=== PATIENT | female | born 1950 | race Caucasian/White ===

== ENCOUNTER → 2019-03-31 | Day surgery (SDC) | payer MEDICARE, OTHER ==
[2019-03-23 11:15] LABS: BASOPHILS % 0.3 % (0.0-1.0); EOSINOPHILS # (AUTO) 0.1 (0.0-0.4); EOSINOPHILS % 1.6 % (0.0-6.0); HEMATOCRIT 38.2 % (34.2-44.1); LYMPHOCYTES # (AUTO) 1.5 (1.0-3.2); LYMPHOCYTES % 24.2 % (18.0-39.1); MEAN CORPUSCULAR HEMOGLOBIN 30.6 pg (28-32); MEAN CORPUSCULAR HGB CONC 31.4 g/dL (31-35); MEAN CORPUSCULAR VOLUME 97.4 fL (81-99); MONOCYTES # (AUTO) 0.5 (0.2-0.8); MONOCYTES % 7.1 % (4.4-11.3); NEUTROPHILS # (AUTO) 4.2 (2.1-6.9); NEUTROPHILS % 66.5 % (38.7-80.0); PLATELET COUNT 262 x10e3/uL (140-360); RED BLOOD COUNT 3.92 x10e6/uL (3.6-5.1); RED CELL DISTRIBUTION WIDTH 13.8 % (11.7-14.4)
[~2019-03-31] MED LIST: ASPIRIN81 MG PO; B-125000 MCG PO; BENADRYL25 M1 PO; CETIRIZINE HCL10 MG PO; CITALOPRAM HBR20 MG PO; CLOPIDOGREL75 MG PO; CRESTOR10 MG PO; D3 PO; EFFIENT10 MG PO; FAMOTIDINE20 MG PO; FENTANYL CITRATE/PF 100MCG/2 ML INJ ONE; FERROUS SULFAT325 MG PO; HCTZ PO; HYDROCHLOROTHIA25 MG PO; MIDAZOLAM HCL 2 MG/2 ML VIAL ONE; NEXIUM40 MG PO; OMEGA 3 FISH O1 EACH PO; OMEPRAZOLE40 MG PO; POTASSIUM CHLO10 ME1 PO; PROPOFOL IV EMULSION 10 MG/ML 50 ML VIAL ONE; RAMIPRIL10 MG PO; TOPROL XL50 MG PO; VITAMIN C WIT1000 MG PO; WOMEN'S DAILY1 EACH PO; ZINC50 MG PO; [UNRECOGNIZED DRUG - OTHER] PO
--- OUTSIDE RECORDS SUMMARY | 2019-03-31 06:32 | XMS REPORT ---
Author Author Shane Goldsmith [facility] eClinicalWorks Address Unknown Phone Unavailable Care Team Providers Care Claim Clerk Name Role Phone Shane Goldsmith CP Unavailable Allergies, Adverse Reactions, Alerts Substance Reaction Event Type Aspirin Info Not Available Drug Allergy Problems Problem Type Condition Code Onset Dates Condition Status Problem Palpitations R00.2 Active Problem Hypertensive heart disease without heart failure I11.9 Active Problem Mixed hyperlipidemia E78.2 Active Problem Atherosclerotic heart disease of [place] coronary artery without angina pectoris I25.10 Active Assessment Obesity, unspecified E66.9 Active Problem CAD without angina I25.10 Active Assessment Dyspnea, unspecified R06.00 Active Problem Chest pain, unspecified R07.9 Active Problem PCI status Z98.61 Active Problem Angina pectoris, unspecified I20.9 Active Problem Obesity, unspecified E66.9 Active Problem Coronary angioplasty status Z98.61 Active Assessment Bruit R09.89 Active Assessment Mixed hyperlipidemia E78.2 Active Assessment PCI status Z98.61 Active Assessment Hypertensive heart disease without heart failure I11.9 Active Assessment Chest pain, unspecified R07.9 Active Problem Hypercholesterolemia 272.0 Active Assessment CAD without angina I25.10 Active Problem Bruit R09.89 Active Assessment Coronary angioplasty status Z98.61 Active Problem Dyspnea, unspecified R06.00 Active Medications Medication Code System Code Instructions Start Date End Date Status Dosage Crestor [facility] 23776003152 10 MG Orally Once a day Active 1 tablet Citalopram Hydrobromide [facility] 62490933714 20 MG Orally Once a day Active 1 tablet Famotidine ND 52730299120 20 MG Orally twice a day (bid) Active 1 tablet Prilosec [facility] 27445855926 40 MG Orally Once a day February 03, 2017 Active 1 capsule Aspirin [facility] 16279795262 81 MG Orally Once a day Active 1 tablet Meclizine HCl [facility] 13170037167 25 MG Orally Once a day Jun 26, 2014 Active 1 tablet as needed Multivitamin Gummies Adult [facility] 14339503278 Orally Active not defined Clopidogrel Bisulfate [facility] 60927130538 75 mg Orally Once a day May 08, 2017 Active 1 tablet Nexium [facility] 19236776841 40 MG Orally Once a day Active 1 capsule Omeprazole [facility] 15258180342 40 MG Orally Once a day Active 1 capsule Metoprolol Succinate ER [facility] 41551301210 50 mg Active 1 TABLET ONCE A DAY ORALLY 90 DAYS Metoprolol Succinate ER [facility] 86777852816 50 mg Orally Once a day Active 1 tablet Famotidine [facility] 93242903960 40 MG Orally twice a day (bid) September 17, 2016 Active 1 tablet Potassium [facility] 46260453363 75 MG Orally Once a day Active 1 tablet Effient [facility] 95603737538 10 MG Orally daily Inactive as directed Ramipril [facility] [address]-86 2.5 MG Orally Once a day Active 1 capsule Hydrochlorothiazide [facility] 68264528814 25 MG Orally Once a day Active 1 tablet Benadryl Allergy [facility] 05687520352 25 MG Orally every 8 hrs Active 1 tablet as needed Vital Signs Date/Time: May 08, 2017 BMI 43.26 Index Weight 260 lbs Height 5ft 5in in Cardiac Monitoring Heart Rate 68 /min Blood Pressure Diastolic 70 mm Hg Blood Pressure Systolic 125 mm Hg Results No Known Results Summary Purpose eClinicalWorks Submission
--- OUTSIDE RECORDS SUMMARY | 2019-03-31 06:32 | XMS REPORT ---
Author Author Shane Goldsmith [facility] eClinicalWorks Address Unknown Phone Unavailable Care Team Providers Care Voyage Management System Operator Name Role Phone Shane Goldsmith CP Unavailable Allergies, Adverse Reactions, Alerts Substance Reaction Event Type Aspirin Info Not Available Drug Allergy Problems Problem Type Condition Code Onset Dates Condition Status Problem Mixed hyperlipidemia E78.2 Active Problem Dyspnea, unspecified R06.00 Active Problem Hypertensive heart disease without heart failure I11.9 Active Problem Coronary angioplasty status Z98.61 Active Assessment Dyspnea, unspecified R06.00 Active Problem CAD without angina I25.10 Active Problem Atherosclerotic heart disease of [place] coronary artery without angina pectoris I25.10 Active Problem Angina pectoris, unspecified I20.9 Active Problem Bruit R09.89 Active Problem PCI status Z98.61 Active Problem Obesity, unspecified E66.9 Active Assessment Hypertensive heart disease without heart failure I11.9 Active Assessment Bruit R09.89 Active Assessment Obesity, unspecified E66.9 Active Assessment PCI status Z98.61 Active Assessment Coronary angioplasty status Z98.61 Active Assessment Atherosclerotic heart disease of [place] coronary artery without angina pectoris I25.10 Active Assessment Mixed hyperlipidemia E78.2 Active Problem Hypercholesterolemia 272.0 Active Assessment CAD without angina I25.10 Active Problem Palpitations R00.2 Active Medications Medication Code System Code Instructions Start Date End Date Status Dosage Hydrochlorothiazide [facility] [address]-03 25 MG Orally Once a day Active 1 tablet Effient [facility] [address]-34 10 MG Orally daily September 17, 2016 Active as directed Citalopram Hydrobromide [facility] [address]-68 20 MG Orally Once a day Active 1 tablet Metoprolol Succinate ER [facility] [address]-21 50 mg Orally Once a day Active 1 tablet Ramipril [facility] [address]-32 10 MG Orally Once a day Active 1 capsule Aspirin [facility] [address]-45 81 MG Orally Once a day Active 1 tablet Meclizine HCl [facility] [address]-40 25 MG Orally Once a day Jun 26, 2014 Active 1 tablet as needed Multivitamin Gummies Adult [facility] [address]74-[address] Orally Active not defined Famotidine [facility] [address]-39 20 MG Orally twice a day (bid) Active 1 tablet Nexium [facility] [address]-88 40 MG Orally Once a day Active 1 capsule Famotidine [facility] [address]-77 40 MG Orally twice a day (bid) September 17, 2016 Active 1 tablet Crestor [facility] [address]-65 10 MG Orally Once a day Active 1 tablet Potassium [facility] [address]-76 75 MG Orally Once a day Active 1 tablet Vital Signs Date/Time: October 24, 2016 BMI 44.43 Index Weight 267 lbs Height 5ft 5in in Cardiac Monitoring Heart Rate 89 /min Blood Pressure Diastolic 60 mm Hg Blood Pressure Systolic 110 mm Hg Results No Known Results Summary Purpose eClinicalWorks Submission
--- OUTSIDE RECORDS SUMMARY | 2019-03-31 06:32 | XMS REPORT ---
Author Author Shane Goldsmith [facility] eClinicalWorks Address Unknown Phone Unavailable Care Team Providers Care Signing Teacher Name Role Phone Shane Goldsmith CP Unavailable Allergies, Adverse Reactions, Alerts Substance Reaction Event Type Aspirin Info Not Available Drug Allergy Problems Problem Type Condition Code Onset Dates Condition Status Problem Palpitations R00.2 Active Problem Hypertensive heart disease without heart failure I11.9 Active Problem Mixed hyperlipidemia E78.2 Active Problem Atherosclerotic heart disease of [place] coronary artery without angina pectoris I25.10 Active Assessment Dyspnea, unspecified R06.00 Active Problem CAD without angina I25.10 Active Problem Chest pain, unspecified R07.9 Active Problem PCI status Z98.61 Active Problem Angina pectoris, unspecified I20.9 Active Problem Obesity, unspecified E66.9 Active Problem Coronary angioplasty status Z98.61 Active Assessment Hypertensive heart disease without heart failure I11.9 Active Assessment Mixed hyperlipidemia E78.2 Active Assessment Obesity, unspecified E66.9 Active Assessment PCI status Z98.61 Active Problem Hypercholesterolemia 272.0 Active Assessment Coronary angioplasty status Z98.61 Active Problem Bruit R09.89 Active Assessment Angina pectoris, unspecified I20.9 Active Problem Dyspnea, unspecified R06.00 Active Medications Medication Code System Code Instructions Start Date End Date Status Dosage Prilosec [facility] 12637545627 40 MG Orally Once a day February 03, 2017 Active 1 capsule Omeprazole [facility] 89088419054 40 Active TAKE ONE CAPSULE BY MOUTH ONCE DAILY Famotidine [facility] 53645516436 20 MG Orally twice a day (bid) Active 1 tablet Citalopram Hydrobromide [facility] 58062018497 20 MG Orally Once a day Active 1 tablet Aspirin [facility] 63322050775 81 MG Orally Once a day Active 1 tablet Multivitamin Gummies Adult [facility] 79484825287 Orally Active not defined Metoprolol Succinate ER [facility] 63753439123 50 mg Orally Once a day Active 1 tablet Ramipril [facility] [address]-82 2.5 MG Orally Once a day Active 1 capsule Clopidogrel Bisulfate [facility] 14025447753 75 mg Orally Once a day Active 1 tablet Carafate [facility] 59662763911 1 GM Orally Twice a day Active 1 tablet at bedtime on an empty stomach before meals Nexium ND 96036516471 40 MG Orally Once a day Active 1 capsule Meclizine HCl ND 80368441531 25 MG Orally Once a day Jun 26, 2014 Active 1 tablet as needed Famotidine ND 89174851749 40 MG Orally twice a day (bid) September 17, 2016 Active 1 tablet Potassium ND 46928997861 75 MG Orally Once a day Active 1 tablet Hydrochlorothiazide [facility] 37448710434 25 MG Orally Once a day Active 1 tablet Crestor [facility] 46361894432 10 MG Orally Once a day Active 1 tablet Benadryl Allergy ND 35983989575 25 MG Orally every 8 hrs Active 1 tablet as needed Vital Signs Date/Time: September 28, 2018 BMI 45.09 Index Weight 271 lbs Height 5ft 5in in Cardiac Monitoring Heart Rate 74 /min Blood Pressure Diastolic 69 mm Hg Blood Pressure Systolic 118 mm Hg Results No Known Results Summary Purpose eClinicalWorks Submission
--- OUTSIDE RECORDS SUMMARY | 2019-03-31 06:32 | XMS REPORT ---
Author Author Shane Goldsmith Organization eClinicalWorks Address Unknown Phone Unavailable Care Team Providers Care Systems Integration Advisor Name Role Phone Shane Goldsmith CP Unavailable Allergies No Known Allergies Problems Problem Type Condition Code Onset Dates Condition Status Problem Mixed hyperlipidemia E78.2 Active Problem Dyspnea, unspecified R06.00 Active Problem Hypertensive heart disease without heart failure I11.9 Active Problem Hypercholesterolemia 272.0 Active Problem Palpitations R00.2 Active Problem Coronary angioplasty status Z98.61 Active Problem CAD without angina I25.10 Active Problem Atherosclerotic heart disease of [place] coronary artery without angina pectoris I25.10 Active Problem Angina pectoris, unspecified I20.9 Active Problem Bruit R09.89 Active Problem PCI status Z98.61 Active Problem Obesity, unspecified E66.9 Active Medications No Known Medications Results No Known Results Summary Purpose eClinicalWorks Submission
--- OUTSIDE RECORDS SUMMARY | 2019-03-31 06:32 | XMS REPORT ---
Author Author Shane Goldsmith [facility] eClinicalWorks Address Unknown Phone Unavailable Care Team Providers Care Landfill [employer] Plant Field Technician Name Role Phone Shane Goldsmith CP Unavailable [...] I25.10 Active Problem Atherosclerotic heart disease of [place] coronary artery without angina pectoris I25.10 Active Problem Angina pectoris, unspecified I20.9 Active Problem Bruit R09.89 Active Problem PCI status Z98.61 Active Problem Obesity, unspecified E66.9 Active Assessment Hypertensive heart disease without heart failure I11.9 Active Assessment Bruit R09.89 Active Assessment Obesity, unspecified E66.9 Active Assessment PCI status Z98.61 Active Assessment Coronary angioplasty status Z98.61 Active Assessment Atherosclerotic heart disease of [place] coronary artery without angina pectoris I25.10 Active Assessment Mixed hyperlipidemia E78.2 Active Problem Hypercholesterolemia 272.0 Active Assessment CAD without angina I25.10 Active Problem Palpitations R00.2 Active Medications Medication Code System Code Instructions Start Date End Date Status Dosage Crestor [facility] [address]-36 10 MG Orally Once a day Active 1 tablet Effient [facility] [address]-71 10 MG Orally daily September 17, 2016 Active as directed Famotidine [facility] [address]-15 20 MG Orally twice a day (bid) Active 1 tablet Brilinta [facility] [address]-29 90 MG Orally Twice a day Inactive 1 tablet Aspirin [facility] [address]-09 81 MG Orally Once a day Active 1 tablet Meclizine HCl [facility] [address]-23 25 MG Orally Once a day Jun 26, 2014 Active 1 tablet as needed Famotidine [facility] [address]-41 40 MG Orally twice a day (bid) September 17, 2016 Active 1 tablet Hydrochlorothiazide [facility] [address]-54 25 MG Orally Once a day Active 1 tablet Citalopram Hydrobromide [facility] [address]-27 20 MG Orally Once a day Active 1 tablet Multivitamin Gummies Adult [facility] [address]60-[address] Orally Active not defined Nexium [facility] [address]-11 40 MG Orally Once a day Active 1 capsule Metoprolol Succinate ER [facility] [address]-86 50 mg Orally Once a day Active 1 tablet Ramipril [facility] [address]-64 10 MG Orally Once a day Active 1 capsule Potassium [facility] [address]-89 75 MG Orally Once a day Active 1 tablet Vital Signs Date/Time: September 17, 2016 BMI 44.43 Index Weight 267 lbs Height 5ft 5in in Cardiac Monitoring Heart Rate 77 /min Blood Pressure Diastolic 70 mm Hg Blood Pressure Systolic 136 mm Hg Results No Known Results Summary Purpose eClinicalWorks Submission
--- OUTSIDE RECORDS SUMMARY | 2019-03-31 06:32 | XMS REPORT ---
Author Author Shane Goldsmith Organization eClinicalWorks Address Unknown Phone Unavailable Care Team Providers Care Health Psychologist Name Role Phone Shane Goldsmith CP Unavailable [...] I25.10 Active Problem Atherosclerotic heart disease of [place] coronary artery without angina pectoris I25.10 Active Problem Angina pectoris, unspecified I20.9 Active Problem Bruit R09.89 Active Problem PCI status Z98.61 Active Problem Obesity, unspecified E66.9 Active Medications Medication Code System Code Instructions Start Date End Date Status Dosage Prilosec [facility] [address]-28 40 MG Orally Once a day February 03, 2017 Active 1 capsule Results No Known Results Summary Purpose eClinicalWorks Submission
--- OUTSIDE RECORDS SUMMARY | 2019-03-31 06:32 | XMS REPORT ---
Author Author Shane Goldsmith [facility] eClinicalWorks Address Unknown Phone Unavailable Care Team Providers Care Steel Barrel Reamer Name Role Phone Shane Goldsmith CP Unavailable Allergies, Adverse Reactions, Alerts Substance Reaction Event Type Aspirin Info Not Available Drug Allergy Problems Problem Type Condition Code Onset Dates Condition Status Problem Palpitations R00.2 Active Problem Hypertensive heart disease without heart failure I11.9 Active Problem Mixed hyperlipidemia E78.2 Active Problem Atherosclerotic heart disease of [place] coronary artery without angina pectoris I25.10 Active [...] Instructions Start Date End Date Status Dosage Ramipril [facility] 75341274349 10 MG Orally Once a day Active 1 capsule Metoprolol Succinate ER ND 58318872407 50 mg Orally Once a day Active 1 tablet Nexium ND 39593245913 40 MG Orally Once a day Active 1 capsule Hydrochlorothiazide ND 94428488808 25 MG Orally Once a day Active 1 tablet Prilosec [facility] 88047334395 40 MG Orally Once a day February 03, 2017 Active 1 capsule Crestor ND 17882917136 10 MG Orally Once a day Active 1 tablet Effient [facility] 85955794086 10 MG Orally daily Active as directed Meclizine HCl [facility] 94682635920 25 MG Orally Once a day Jun 26, 2014 Active 1 tablet as needed Citalopram Hydrobromide [facility] 43022254273 20 MG Orally Once a day Active 1 tablet Multivitamin Gummies Adult [facility] 47621783353 Orally Active not defined Potassium [facility] 54597371840 75 MG Orally Once a day Active 1 tablet Benadryl Allergy [facility] 91341430132 25 MG Orally every 8 hrs Active 1 tablet as needed Famotidine [facility] 92412638757 40 MG Orally twice a day (bid) September 17, 2016 Active 1 tablet Aspirin [facility] 33354016183 81 MG Orally Once a day Active 1 tablet Famotidine [facility] 42695894191 20 MG Orally twice a day (bid) Active 1 tablet Vital Signs Date/Time: Apr 24, 2017 Blood Pressure Diastolic 70 mm Hg Blood Pressure Systolic 130 mm Hg Height 5ft 5in in Cardiac Monitoring Heart Rate 66 /min Results No Known Results Summary Purpose eClinicalWorks Submission
--- OUTSIDE RECORDS SUMMARY | 2019-03-31 06:32 | XMS REPORT ---
Author Author Shane Goldsmith Organization eClinicalWorks Address Unknown Phone Unavailable Care Team Providers Care Braiding Machine Tender Name Role Phone Shane Goldsmith CP Unavailable Allergies No Known Allergies Problems Problem Type Condition Code Onset Dates Condition Status Problem Palpitations R00.2 Active Problem Hypertensive heart disease without heart failure I11.9 Active Problem Mixed hyperlipidemia E78.2 Active Problem Atherosclerotic heart disease of [place] coronary artery without angina pectoris I25.10 Active Problem CAD without angina I25.10 Active Problem Chest pain, unspecified R07.9 Active Problem PCI status Z98.61 Active Problem Angina pectoris, unspecified I20.9 Active Problem Obesity, unspecified E66.9 Active Problem Coronary angioplasty status Z98.61 Active Problem Hypercholesterolemia 272.0 Active Problem Bruit R09.89 Active Problem Dyspnea, unspecified R06.00 Active Medications No Known Medications Results No Known Results Summary Purpose [employer] Submission
--- OUTSIDE RECORDS SUMMARY | 2019-03-31 06:32 | XMS REPORT | Continuity of Care Document ---
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 Problem 10/14/2018 Steffen Veliz MD, PA CAD without angina Active Problem 02/25/2019 Steffen Veliz MD, PA Chest pain, unspecified Active Problem 02/25/2019 Steffen Veliz MD, PA PCI status Active Problem 02/25/2019 Steffen Veliz MD, PA Angina pectoris, unspecified Active Problem 02/25/2019 Steffen Veliz MD, PA Obesity, unspecified Active Problem 02/25/2019 Steffen Veliz MD, ZECHARIAH Coronary angioplasty status Active Problem 02/25/2019 Steffen Veliz MD, PA Hypercholesterolemia Active Problem 02/25/2019 Steffen Veliz MD, PA Bruit Active Problem 02/25/2019 Steffen Veliz MD, PA Dyspnea, unspecified Active Problem 02/25/2019 Steffen Veliz MD, PA Screening for cardiovascular disorders Active Diagnosis 04/01/2016 Steffen Veliz MD, PA Peripheral vascular disease, unspecified Active Diagnosis 04/01/2016 Steffen Veliz MD, PA Family history of ischemic heart disease and other diseases of the circulatory system Active Diagnosis 04/01/2016 Steffen Veliz MD, PA Medications Medication Details Route Status Patient Instructions Ordering Provider Order Date Source Carafate 1 tablet at bedtime on an empty stomach before meals Orally Active 1 GM Orally Twice a day [facility] 11/06/2017 Steffen Veliz MD, PA Clopidogrel Bisulfate 1 tablet Orally Active 75 mg Orally Once a day [facility] 05/08/2017 Steffen Veliz MD, ZECHARIAH Prilosec 1 capsule Orally Active 40 MG Orally Once a day [facility] 02/03/2017 Steffen Veliz MD, PA Prilosec 1 capsule Orally Active 40 MG Orally Once a day [facility] 02/03/2017 Steffen Veliz MD, ZECHARIAH Famotidine 1 tablet Orally Active 40 MG Orally twice a day (bid) [facility] 09/17/2016 Steffen Veliz MD, ZECHARIAH Effient as directed Orally Active 10 MG Orally daily [facility] 09/17/2016 Steffen Veliz MD, ZECHARIAH Famotidine 1 tablet Orally Active 40 MG Orally twice a day (bid) [facility] 09/17/2016 Steffen Veliz MD, PA Meclizine HCl 1 tablet as needed Orally Active 25 MG Orally Once a day [facility] 06/26/2014 Steffen Veliz MD, PA Meclizine HCl 1 tablet as needed Orally Active 25 MG Orally Once a day [facility] 06/26/2014 Steffen Veliz MD, ZECHARIAH Ramipril 1 capsule Orally Active 10 MG Orally Once a day Agus Veliz MD, ZECHARIAH Metoprolol Succinate ER 1 tablet Orally Active 50 mg Orally Once a day Agus Veliz MD, PA Nexium 1 capsule Orally Active 40 MG Orally Once a day Agus Veliz MD, PA Hydrochlorothiazide 1 tablet Orally Active 25 MG Orally Once a day Agus Veliz MD, PA Crestor 1 tablet Orally Active 10 MG Orally Once a day Agus Veliz MD, PA Effient as directed Orally Active 10 MG Orally daily Agus eVliz MD, PA Citalopram Hydrobromide 1 tablet Orally Active 20 MG Orally Once a day Agus Veliz MD, PA Multivitamin Gummies Adult not defined Orally Active Orally Agus Veliz MD, PA Potassium 1 tablet Orally Active 75 MG Orally Once a day Agus Veliz MD, PA Benadryl Allergy 1 tablet as needed Orally Active 25 MG Orally every 8 hrs Agus Veliz MD, PA Aspirin 1 tablet Orally Active 81 MG Orally Once a day Agus Veliz MD, PA Famotidine 1 tablet Orally Active 20 MG Orally twice a day (bid) Agus Veliz MD, PA Hydrochlorothiazide 1 tablet Orally Active 25 MG Orally Once a day Agus Veliz MD, ZECHARIAH Citalopram Hydrobromide 1 tablet Orally Active 20 MG Orally Once a day Agus Veliz MD, PA Metoprolol Succinate ER 1 tablet Orally Active 50 mg Orally Once a day Agus Veliz MD, PA Ramipril 1 capsule Orally Active 10 MG Orally Once a day Agus Veliz MD, PA Aspirin 1 tablet Orally Active 81 MG Orally Once a day Agus Veliz MD, PA Multivitamin Gummies Adult not defined Orally Active Orally Agus Veliz MD, PA Famotidine 1 tablet Orally Active 20 MG Orally twice a day (bid) Agus Veliz MD, PA Nexium 1 capsule Orally Active 40 MG Orally Once a day Agus Veliz MD, PA Crestor 1 tablet Orally Active 10 MG Orally Once a day Agus Veliz MD, PA Potassium 1 tablet Orally Active 75 MG Orally Once a day Agus Veliz MD, PA Omeprazole 1 capsule Orally Active 40 MG Orally Once a day Agus Veliz MD, PA Metoprolol Succinate ER 1 TABLET ONCE A DAY ORALLY 90 DAYS NA Active 50 Agus Veliz MD, PA Ramipril 1 capsule Orally Active 2.5 MG Orally Once a day Agus Veliz MD, PA Carafate 1 tablet at bedtime on an empty stomach before meals Orally Active 1 GM Orally Twice a day Agus Veliz MD, PA Omeprazole TAKE ONE CAPSULE BY MOUTH ONCE DAILY NA Active 40 Agus Veliz MD, PA Brilinta 1 tablet Orally Active 90 MG Orally Twice a day Agus Veliz MD, PA Crestor 1 tablet Orally Active 20 MG Orally Once a day Agus Veliz MD, PA Clopidogrel Bisulfate 1 tablet Orally Active 75 mg Orally Once a day Agus Veliz MD, PA Ramipril 1 capsule Orally Active 5 MG Orally Once a day Agus Veliz MD, PA Allergies, Adverse Reactions, Alerts Substance Category Reaction Severity Reaction type Status Date Reported Comments Source N.K.D.A. Adverse Reaction Info Not Available Adverse Reaction Active 03/29/2018 Steffen Veliz MD, PA Aspirin Adverse Reaction Info Not Available Adverse Reaction Active 11/23/2018 Steffen Veliz MD, ZECHARIAH Immunizations No Data Provided for This Section Results No Data Provided for This Section Pathology Reports No Data Provided for This Section Diagnostic Reports No Data Provided for This Section Consultation Notes No Data Provided for This Section Discharge Summaries No Data Provided for This Section History and Physicals No Data Provided for This Section Vital Signs Vital Sign Value Date Comments Source Weight 267 11/23/2018 Steffen Veliz MD, PA Heart Rate 84 11/23/2018 Steffen Veliz MD, PA Diastolic (mm Hg) 60 11/23/2018 Steffen Veliz MD, PA Systolic (mm Hg) 125 11/23/2018 Steffen Veliz MD, PA Weight 271 09/28/2018 Steffen Veliz MD, PA Heart Rate 74 09/28/2018 Steffen Veliz MD, PA Diastolic (mm Hg) 69 09/28/2018 Steffen Veliz MD, PA Systolic (mm Hg) 118 09/28/2018 Steffen Veliz MD, PA Weight 275 03/29/2018 Steffen Veliz MD, PA Heart Rate 84 03/29/2018 Steffen Veliz MD, ZECHARIAH Diastolic (mm Hg) 69 03/29/2018 Steffen Veliz MD, PA Systolic (mm Hg) 135 03/29/2018 Steffen Veliz MD, PA Weight 263 12/25/2017 Steffen Veliz MD, PA Heart Rate 78 12/25/2017 Steffen Veliz MD, ZECHARIAH Diastolic (mm Hg) 69 12/25/2017 Steffen Veilz MD, PA Systolic (mm Hg) 135 12/25/2017 Steffen Veliz MD, PA Weight 260 11/06/2017 Steffen Veliz MD, ZECHARIAH Heart Rate 66 11/06/2017 Steffen Veliz MD, PA Diastolic (mm Hg) 80 11/06/2017 Steffen Veliz MD, PA Systolic (mm Hg) 125 11/06/2017 Steffen Veliz MD, PA Weight 260 05/08/2017 Steffen Veliz MD, PA Heart Rate 68 05/08/2017 Steffen Veliz MD, PA Diastolic (mm Hg) 70 05/08/2017 Steffen Veliz MD, PA Systolic (mm Hg) 125 05/08/2017 Steffen Veliz MD, PA Diastolic (mm Hg) 70 04/24/2017 Steffen Veliz MD, PA Systolic (mm Hg) 130 04/24/2017 Steffen Veliz MD, PA Heart Rate 66 04/24/2017 Steffen Veliz MD, PA Weight 267 10/24/2016 Steffen Veliz MD, PA Heart Rate 89 10/24/2016 Steffen Veliz MD, PA Diastolic (mm Hg) 60 10/24/2016 Steffen Veliz MD, PA Systolic (mm Hg) 110 10/24/2016 Steffen Veliz MD, PA Weight 267 09/17/2016 Steffen Veliz MD, PA Heart Rate 77 09/17/2016 Steffen Veliz MD, PA Diastolic (mm Hg) 70 09/17/2016 Steffen Veliz MD, PA Systolic (mm Hg) 136 09/17/2016 Steffen Veliz MD, PA Weight 275 04/18/2016 Steffen Veliz MD, PA Heart Rate 84 04/18/2016 Steffen Veliz MD, PA Diastolic (mm Hg) 70 04/18/2016 Steffen Veliz MD, PA Systolic (mm Hg) 138 04/18/2016 Steffen Veliz MD, PA Weight 267 03/28/2016 Steffen Veliz MD, PA Heart Rate 60 03/28/2016 Steffen Veliz MD, PA Diastolic (mm Hg) 65 03/28/2016 Steffen Veliz MD, PA Systolic (mm Hg) 125 03/28/2016 Steffen Veliz MD, PA Weight 267 03/11/2016 Steffen Veliz MD, PA Heart Rate 98 03/11/2016 Steffen Veliz MD, PA Diastolic (mm Hg) 60 03/11/2016 Steffen Veliz MD, PA Systolic (mm Hg) 130 03/11/2016 Steffen Veliz MD, PA Weight 260 09/14/2015 Steffen Veliz MD, PA Heart Rate 76 09/14/2015 Steffen Veliz MD, PA Diastolic (mm Hg) 70 09/14/2015 Steffen Veliz MD, PA Systolic (mm Hg) 120 09/14/2015 Steffen Veliz MD, PA Encounters Location Location Details Encounter Type Encounter Number Reason For Visit Attending Provider ADM Date DC Date Status Source Steffen Veliz MD, PA echo & carotid dopplers [id number] 09/06/2015 09/06/2015 Steffen Veliz MD, PA Steffen Veliz MD, PA echo & carotid dopplers [id number] 09/06/2015 09/06/2015 Steffen Veliz MD, PA Steffen Veliz MD, PA echo & carotid dopplers [id number] 09/06/2015 09/06/2015 Steffen Veliz MD, PA Steffen Veliz MD, PA echo & carotid dopplers [id number] 09/06/2015 09/06/2015 Steffen Veliz MD, PA Steffen Veliz MD, PA echo & carotid dopplers [id number] 09/06/2015 09/06/2015 Steffen Veliz MD, PA Steffen Veliz MD, PA Follow-Up [id number] 09/14/2015 09/14/2015 Steffen Veliz MD, PA Steffen Veliz MD, PA Follow-Up [id number] 09/14/2015 09/14/2015 Steffen Veliz MD, PA Steffen Veliz MD, PA Follow-Up [id number] 09/14/2015 09/14/2015 Steffen Veliz MD, PA Steffen Veliz MD, PA Follow-Up [id number] 09/14/2015 09/14/2015 Steffen Veliz MD, PA Steffen Veliz MD, PA Follow-Up [id number] 09/14/2015 09/14/2015 Steffen Veliz MD, PA Steffen Veliz MD, PA Follow-Up [id number] 09/14/2015 09/14/2015 Steffen Veliz MD, PA Steffen Veliz MD, PA Follow-Up [id number] 03/11/2016 03/11/2016 Steffen Veliz MD, PA Steffen Veliz MD, PA Follow-Up [id number] 03/11/2016 03/11/2016 Steffen Veliz MD, PA Steffen Veliz MD, PA Follow-Up [id number] 03/11/2016 03/11/2016 Steffen Veliz MD, PA Steffen Veliz MD, PA Follow-Up [id number] 03/11/2016 03/11/2016 Steffen Veliz MD, PA Steffen Veliz MD, PA Office stress test [id number] 03/21/2016 03/21/2016 Steffen Veliz MD, PA Steffen Veliz MD, PA Office stress test [id number] 03/21/2016 03/21/2016 Steffen Veliz MD, PA Steffen Veliz MD, PA Office stress test [id number] 03/21/2016 03/21/2016 Steffen Veliz MD, PA Steffen Veliz MD, PA Follow-Up [id number] 03/28/2016 03/28/2016 Steffen Veliz MD, ZECHARIAH Veliz MD, PA Follow-Up [id number] 03/28/2016 03/28/2016 Steffen Veliz MD, PA Steffen Veliz MD, PA Follow-Up [id number] 04/18/2016 04/18/2016 Steffen Veliz MD, PA Procedures No Data Provided for This Section Assessment and Plan No Data Provided for This Section Plan of Care No Data Provided for This Section Social History Social History Date Source Social History ElementQualifiersDate Reported Tobacco Use: . Are you a: never smoker Apr 18, 2016 Do you drink alcohol? . Status: Yes, Type: Rarely Apr 18, 2016 04/18/2016 Steffen Veliz MD, PA Family History No Data Provided for This Section Advance Directives No Data Provided for This Section Functional Status No Data Provided for This Section
--- OUTSIDE RECORDS SUMMARY | 2019-03-31 06:33 | XMS REPORT ---
Author Author Shane Goldsmith Organization [employer] Address Unknown Phone Unavailable Care Team Providers Care Shoe Cutter Name Role Phone Shane Goldsmith CP Unavailable Allergies No Known Allergies Problems Problem Type Condition Code Onset Dates Condition Status Problem Palpitations R00.2 Active Problem Hypertensive heart disease without heart failure I11.9 Active Problem Mixed hyperlipidemia E78.2 Active Problem Atherosclerotic heart disease of [place] coronary artery without angina pectoris I25.10 Active [...] Medications Results No Known Results Summary Purpose [employer] Submission
--- OUTSIDE RECORDS SUMMARY | 2019-03-31 06:33 | XMS REPORT ---
Author Author Shane Goldsmith [facility] [employer] Address Unknown Phone Unavailable Care Team Providers Care Finance Executive Name Role Phone Shane Goldsmith CP Unavailable Allergies, Adverse Reactions, Alerts Substance Reaction Event Type Aspirin Info Not Available Drug Allergy Problems Problem Type Condition Code Onset Dates Condition Status Problem Palpitations R00.2 Active Problem Hypertensive heart disease without heart failure I11.9 Active Problem Mixed hyperlipidemia E78.2 Active Problem Atherosclerotic heart disease of [place] coronary artery without angina pectoris I25.10 Active [...] Active Assessment PCI status Z98.61 Active Assessment Chest pain, unspecified R07.9 Active Problem Hypercholesterolemia 272.0 Active Assessment CAD without angina I25.10 Active Problem Bruit R09.89 Active Assessment Coronary angioplasty status Z98.61 Active Problem Dyspnea, unspecified R06.00 Active Medications Medication Code System Code Instructions Start Date End Date Status Dosage Carafate [facility] 06860679135 1 GM Orally Twice a day November 06, 2017 January 05, 2018 Active 1 tablet at bedtime on an empty stomach before meals Meclizine HCl [facility] 07111508103 25 MG Orally Once a day Jun 26, 2014 Active 1 tablet as needed Ramipril [facility] [address]-24 2.5 MG Orally Once a day Active 1 capsule Crestor [facility] 92664495931 10 MG Orally Once a day Active 1 tablet Hydrochlorothiazide [facility] 01858936059 25 MG Orally Once a day Active 1 tablet Nexium [facility] 26406618380 40 MG Orally Once a day Active 1 capsule Multivitamin Gummies Adult [facility] 79232283299 Orally Active not defined Potassium [facility] 52573537265 75 MG Orally Once a day Active 1 tablet Famotidine [facility] 64316549109 40 MG Orally twice a day (bid) September 17, 2016 Active 1 tablet Aspirin [facility] 80918030475 81 MG Orally Once a day Active 1 tablet Benadryl Allergy [facility] 46538843085 25 MG Orally every 8 hrs Active 1 tablet as needed Prilosec [facility] 05307204099 40 MG Orally Once a day February 03, 2017 Active 1 capsule Metoprolol Succinate ER [facility] 73700751449 50 mg Orally Once a day Active 1 tablet Citalopram Hydrobromide [facility] 24832365771 20 MG Orally Once a day Active 1 tablet Famotidine [facility] 12191094050 20 MG Orally twice a day (bid) Active 1 tablet Omeprazole [facility] 39670281735 40 Active TAKE ONE CAPSULE BY MOUTH ONCE DAILY Clopidogrel Bisulfate [facility] 78960147333 75 mg Orally Once a day May 08, 2017 Active 1 tablet Vital Signs Date/Time: November 06, 2017 BMI 43.26 Index Weight 260 lbs Height 5ft 5in in Cardiac Monitoring Heart Rate 66 /min Blood Pressure Diastolic 80 mm Hg Blood Pressure Systolic 125 mm Hg Results No Known Results Summary Purpose [employer] Submission
--- OUTSIDE RECORDS SUMMARY | 2019-03-31 06:33 | XMS REPORT ---
Author Author Shane Goldsmith [facility] [employer] Address Unknown Phone Unavailable Care Team Providers Care High [employer] Professional Name Role Phone Shane Goldsmith CP Unavailable Allergies, Adverse Reactions, Alerts Substance Reaction Event Type Aspirin Info Not Available Drug Allergy Problems Problem Type Condition Code Onset Dates Condition Status Problem Dyspnea, unspecified R06.00 Active Problem Mixed hyperlipidemia E78.2 Active Problem Palpitations R00.2 Active Problem CAD without angina I25.10 Active Problem Obesity, unspecified E66.9 Active Problem Chest pain, unspecified R07.9 Active Problem Angina pectoris, unspecified I20.9 Active Problem Hypertensive heart disease without heart failure I11.9 Active Problem Coronary angioplasty status Z98.61 Active Problem PCI status Z98.61 Active Assessment Obesity, unspecified E66.9 Active Assessment PCI status Z98.61 Active Assessment CAD without angina I25.10 Active Assessment Dyspnea, unspecified R06.00 Active Assessment Coronary angioplasty status Z98.61 Active Assessment Hypertensive heart disease without heart failure I11.9 Active Problem Hypercholesterolemia 272.0 Active Assessment Mixed hyperlipidemia E78.2 Active Problem Bruit R09.89 Active Medications Medication Code System Code Instructions Start Date End Date Status Dosage Carafate [facility] 62344770919 1 GM Orally Twice a day Active 1 tablet at bedtime on an empty stomach before meals Prilosec [facility] 64012963992 40 MG Orally Once a day February 03, 2017 Active 1 capsule Crestor [facility] 07243805823 20 MG Orally Once a day Active 1 tablet Clopidogrel Bisulfate [facility] 71335119206 75 mg Orally Once a day Active 1 tablet Aspirin ND 45382355907 81 MG Orally Once a day Active 1 tablet Ramipril ND 98878615679 5 MG Orally Once a day Active 1 capsule Benadryl Allergy ND 28526283845 25 MG Orally every 8 hrs Active 1 tablet as needed Nexium ND 19675643862 40 MG Orally Once a day Active 1 capsule Famotidine ND 76745509397 20 MG Orally twice a day (bid) Active 1 tablet Metoprolol Succinate ER [facility] 23725424241 50 Active 1 TABLET ONCE A DAY ORALLY 90 DAYS Omeprazole [facility] 01176529256 40 Active TAKE ONE CAPSULE BY MOUTH ONCE DAILY Metoprolol Succinate ER [facility] 24403478814 50 mg Orally Once a day Active 1 tablet Hydrochlorothiazide [facility] 82736470075 25 MG Orally Once a day Active 1 tablet Famotidine [facility] 16213997104 40 MG Orally twice a day (bid) September 17, 2016 Active 1 tablet Meclizine HCl [facility] 24482793421 25 MG Orally Once a day Jun 26, 2014 Active 1 tablet as needed Multivitamin Gummies Adult [facility] 72533282256 Orally Active not defined Potassium [facility] 35750052705 75 MG Orally Once a day Active 1 tablet Citalopram Hydrobromide [facility] 80678363267 20 MG Orally Once a day Active 1 tablet Vital Signs Date/Time: November 23, 2018 BMI 44.43 Index Weight 267 lbs Height 5ft 5in in Cardiac Monitoring Heart Rate 84 /min Blood Pressure Diastolic 60 mm Hg Blood Pressure Systolic 125 mm Hg Results No Known Results Summary Purpose [employer] Submission
--- OUTSIDE RECORDS SUMMARY | 2019-03-31 06:33 | XMS REPORT ---
Author Author Shane Goldsmith [facility] [employer] Address Unknown Phone Unavailable Care Team Providers Care Home Health Specialist Name Role Phone Shane Goldsmith CP Unavailable Allergies, Adverse Reactions, Alerts Substance Reaction Event Type Aspirin Info Not Available Drug Allergy Problems Problem Type Condition Code Onset Dates Condition Status Problem Palpitations R00.2 Active Problem Hypertensive heart disease without heart failure I11.9 Active Problem Mixed hyperlipidemia E78.2 Active Problem Atherosclerotic heart disease of [place] coronary artery without angina pectoris I25.10 Active [...] Start Date End Date Status Dosage Carafate [facility] 46017260347 1 GM Orally Twice a day Active 1 tablet at bedtime on an empty stomach before meals Famotidine ND 21878097901 20 MG Orally twice a day (bid) Active 1 tablet Potassium ND 58955400222 75 MG Orally Once a day Active 1 tablet Crestor ND 88552165253 10 MG Orally Once a day Active 1 tablet Prilosec ND 03004007524 40 MG Orally Once a day February 03, 2017 Active 1 capsule Clopidogrel Bisulfate [facility] 09815255689 75 mg Orally Once a day May 08, 2017 Active 1 tablet Omeprazole [facility] 24401749936 40 Active TAKE ONE CAPSULE BY MOUTH ONCE DAILY Multivitamin Gummies Adult [facility] 30074765772 Orally Active not defined Ramipril [facility] [address]-66 2.5 MG Orally Once a day Active 1 capsule Hydrochlorothiazide [facility] 26392476665 25 MG Orally Once a day Active 1 tablet Citalopram Hydrobromide [facility] 44948990865 20 MG Orally Once a day Active 1 tablet Famotidine [facility] 69240269210 40 MG Orally twice a day (bid) September 17, 2016 Active 1 tablet Metoprolol Succinate ER [facility] 32336432298 50 mg Orally Once a day Active 1 tablet Benadryl Allergy [facility] 88591812856 25 MG Orally every 8 hrs Active 1 tablet as needed Meclizine HCl [facility] 84687893354 25 MG Orally Once a day Jun 26, 2014 Active 1 tablet as needed Nexium [facility] 54955355321 40 MG Orally Once a day Active 1 capsule Aspirin [facility] 10259992565 81 MG Orally Once a day Active 1 tablet Vital Signs Date/Time: December 25, 2017 BMI 43.76 Index Weight 263 lbs Height 5ft 5in in Cardiac Monitoring Heart Rate 78 /min Blood Pressure Diastolic 69 mm Hg Blood Pressure Systolic 135 mm Hg Results No Known Results Summary Purpose [employer] Submission
--- OUTSIDE RECORDS SUMMARY | 2019-03-31 06:33 | XMS REPORT ---
Author Author Shane Goldsmith [facility] [place] eClinicalWorks Address Unknown Phone Unavailable Care Team Providers Care Vehicle Care Specialist Name Role Phone Shane Goldsmith CP Unavailable Allergies, Adverse Reactions, Alerts Substance Reaction Event Type Aspirin Info Not Available Drug Allergy Encounters Encounter Location Date Follow[place]Up [facility] [place] Sep 14, 2015 Problems Problem Type Condition ICD-9 Code Onset Dates Condition Status Assessment Mixed hyperlipidemia E78.2 Active Assessment Bruit R09.89 Active Assessment Dyspnea, unspecified R06.00 Active Problem Dyspnea, unspecified R06.00 Active Problem Hypertensive heart disease without heart failure I11.9 Active Problem Bruit R09.89 Active Problem Hypercholesterolemia 272.0 Active Assessment Hypertensive heart disease without heart failure I11.9 Active Problem Mixed hyperlipidemia E78.2 Active Problem Palpitations R00.2 Active Assessment Screening for cardiovascular disorders Z13.6 Active Assessment Peripheral vascular disease, unspecified I73.9 Active Assessment Palpitations R00.2 Active Assessment Obesity, unspecified E66.9 Active Medications Medication Code System Code Instructions Start Date End Date Status Dosage Nexium [facility] [address]-01 40 MG Orally Once a day Active 1 capsule Multivitamin Gummies Adult [facility] 13894-[address]37 Orally Active Unknown Citalopram Hydrobromide [facility] [address]-15 20 MG Orally Once a day Active 1 tablet Metoprolol Succinate ER [facility] [address]-21 50 MG Orally Once a day Active 1 tablet Meclizine HCl [facility] [address]-65 25 MG Orally Once a day Jun 26, 2014 Active 1 tablet as needed Ramipril [facility] [address]-01 10 MG Orally Once a day Active 1 capsule Crestor [facility] [address]-89 10 MG Orally Once a day Active 1 tablet Hydrochlorothiazide [facility] [address]-68 25 MG Orally Once a day Active 1 tablet Social History Social History Element Qualifiers Date Reported Tobacco Use: . Are you a: never smoker Sep 16, 2015 Do you drink alcohol? . Status: Yes, Type: Rarely Sep 16, 2015 Vital Signs Date/Time: Sep 14, 2015 Weight 260 lbs Cardiac Monitoring Heart Rate 76 /min Blood Pressure Diastolic 70 mm Hg Blood Pressure Systolic 120 mm Hg Summary Purpose eClinicalWorks Submission
--- OUTSIDE RECORDS SUMMARY | 2019-03-31 06:33 | XMS REPORT ---
Author Author hSane Goldsmith [facility] eClinicalWorks Address Unknown Phone Unavailable Care Team Providers Care Woodworking Craftsman Name Role Phone Shane Goldsmith CP Unavailable Allergies, Adverse Reactions, Alerts Substance Reaction Event Type Aspirin Info Not Available Drug Allergy Encounters Encounter Location Date Follow[place]Up [facility] [place] Sep 14, 2015 echo & carotid dopplers [facility] [place] Sep 06, 2015 Follow-Up [facility] [place] Mar 11, 2016 Problems Problem Type Condition ICD-9 Code Onset Dates Condition Status Assessment Bruit R09.89 Active Assessment Angina pectoris, unspecified I20.9 Active Assessment Hypertensive heart disease without heart failure I11.9 Active Problem Bruit R09.89 Active Problem Dyspnea, unspecified R06.00 Active Problem Angina pectoris, unspecified I20.9 Active Problem Palpitations R00.2 Active Problem Hypercholesterolemia 272.0 Active Problem Hypertensive heart disease without heart failure I11.9 Active Problem Mixed hyperlipidemia E78.2 Active Assessment Family history of ischemic heart disease and other diseases of the circulatory system Z82.49 Active Assessment Palpitations R00.2 Active Assessment Obesity, unspecified E66.9 Active Assessment Screening for cardiovascular disorders Z13.6 Active Assessment Mixed hyperlipidemia E78.2 Active Assessment Peripheral vascular disease, unspecified I73.9 Active Assessment Dyspnea, unspecified R06.00 Active Medications Medication Code System Code Instructions Start Date End Date Status Dosage Nexium [facility] [address]-67 40 MG Orally Once a day Active 1 capsule [facility] [address]-70 10 MG Orally Once a day Active 1 capsule Citalopram Hydrobromide [facility] [address]-42 20 MG Orally Once a day Active 1 tablet Meclizine HCl [facility] [address]-98 25 MG Orally Once a day Jun 26, 2014 Active 1 tablet as needed Metoprolol Succinate ER [facility] [address]-10 50 mg Orally Once a day Active 1 tablet Crestor [facility] [address]-82 10 MG Orally Once a day Active 1 tablet Hydrochlorothiazide [facility] [address]-18 25 MG Orally Once a day Active 1 tablet Multivitamin Gummies Adult [facility] 12351-52368 Orally Active Unknown Social History Social History Element Qualifiers Date Reported Tobacco Use: . Are you a: never smoker Mar 13, 2016 Do you drink alcohol? . Status: Yes, Type: Rarely Mar 13, 2016 Vital Signs Date/Time: Mar 11, 2016 Weight 267 lbs Cardiac Monitoring Heart Rate 98 /min Blood Pressure Diastolic 60 mm Hg Blood Pressure Systolic 130 mm Hg Summary Purpose eClinicalWorks Submission
--- OUTSIDE RECORDS SUMMARY | 2019-03-31 06:33 | XMS REPORT ---
Author Author Shane Goldsmith Organization eClinicalWorks Address Unknown Phone Unavailable Care Team Providers Care Grey Inspector Name Role Phone Shane Goldsmith CP Unavailable Encounters Encounter Location Date Office stress test [facility] [place] Mar 21, 2016 Follow-Up [facility] [place] Sep 14, 2015 echo & carotid dopplers [facility] [place] Sep 06, 2015 Follow[place]Up [facility] Mar 11, 2016 Problems Problem Type Condition ICD-9 Code Onset Dates Condition Status Problem Bruit R09.89 Active Problem Dyspnea, unspecified R06.00 Active Problem Angina pectoris, unspecified I20.9 Active Problem Palpitations R00.2 Active Problem Hypercholesterolemia 272.0 Active Problem Hypertensive heart disease without heart failure I11.9 Active Problem Mixed hyperlipidemia E78.2 Active Social History Social History Element Qualifiers Date Reported Tobacco Use: . Are you a: never smoker Mar 13, 2016 Do you drink alcohol? . Status: Yes, Type: Rarely Mar 13, 2016 Summary Purpose eClinicalWorks Submission
--- OUTSIDE RECORDS SUMMARY | 2019-03-31 06:33 | XMS REPORT ---
Author Author Shane Goldsmith [facility] eClinicalWorks Address Unknown Phone Unavailable Care Team Providers Care Photography Teacher Name Role Phone Shane Goldsmith CP Unavailable Allergies, Adverse Reactions, Alerts Substance Reaction Event Type Aspirin Info Not Available Drug Allergy Encounters Encounter Location Date Office stress test [facility] [place] Mar 21, 2016 Follow-Up [facility] Mar 28, 2016 Follow-Up [facility] [place] Sep [...] Start Date End Date Status Dosage Nexium [facility] [address]-50 40 MG Orally Once a day Active 1 capsule Citalopram Hydrobromide [facility] [address]-08 20 MG Orally Once a day Active 1 tablet Metoprolol Succinate ER [facility] [address]-51 50 mg Orally Once a day Active 1 tablet Crestor [facility] [address]-87 10 MG Orally Once a day Active 1 tablet Multivitamin Gummies Adult [facility] 48639-[address]76 Orally Active Unknown Meclizine HCl [facility] [address]-43 25 MG Orally Once a day Jun 26, 2014 Active 1 tablet as needed Hydrochlorothiazide [facility] [address]-01 25 MG Orally Once a day Active 1 tablet Ramipril [facility] [address]-72 10 MG Orally Once a day Active 1 capsule Social History Social History Element Qualifiers Date Reported Tobacco Use: . Are you a: never smoker Mar 31, 2016 Do you drink alcohol? . Status: Yes, Type: Rarely Mar 31, 2016 Vital Signs Date/Time: Mar 28, 2016 Weight 267 lbs Cardiac Monitoring Heart Rate 60 /min Blood Pressure Diastolic 65 mm Hg Blood Pressure Systolic 125 mm Hg Summary Purpose eClinicalWorks Submission
--- OUTSIDE RECORDS SUMMARY | 2019-03-31 06:33 | XMS REPORT ---
Author Author Shane Goldsmith Organization eClinicalWorks Address Unknown Phone Unavailable Care Team Providers Care Workforce Investment Act Career Manager Name Role Phone Shane Goldsmith CP Unavailable Encounters Encounter Location Date Follow-Up [facility] [place] Sep 14, 2015 echo & carotid dopplers [facility] Sep 06, 2015 Problems Problem Type Condition ICD-9 Code Onset Dates Condition Status Problem Hypercholesterolemia 272.0 Active Social History Social History Element Qualifiers Date Reported Tobacco Use: . Are you a: never smoker Sep 16, 2015 Do you drink alcohol? . Status: Yes, Type: Rarely Sep 16, 2015 Summary Purpose eClinicalWorks Submission
--- OUTSIDE RECORDS SUMMARY | 2019-03-31 06:33 | XMS REPORT ---
Author Author [facility] Address Unknown Phone Unavailable Care Team Providers Care Metal Spray Operator Name Role Phone Unavailable Unavailable Problems This patient has no known problems. Allergies, Adverse Reactions, Alerts This patient has no known allergies or adverse reactions. Medications This patient has no known medications. Encounters Start Date/Time End Date/Time Encounter Type Admission Type Attending [facility] Care Facility Care Department Encounter ID 2018-11-16 06:14:00 2018-11-16 06:14:00 Outpatient [id number]
--- OUTSIDE RECORDS SUMMARY | 2019-03-31 06:33 | XMS REPORT ---
Author Author Shane Goldsmith [facility] eClinicalWorks Address Unknown Phone Unavailable Care Team Providers Care Physical Plant Employee Name Role Phone Shane Goldsmith CP Unavailable Allergies, Adverse Reactions, Alerts Substance Reaction Event Type Aspirin Info Not Available Drug Allergy Encounters Encounter Location Date Office stress test [facility] [place] Mar 21, 2016 Follow-Up [facility] Mar 28, 2016 Follow-Up [facility] Apr 18, 2016 Follow-Up [facility] [place] Sep 14, 2015 echo & carotid dopplers [facility] [place] Sep 06, 2015 Follow-Up [facility] [place] Mar 11, 2016 Problems Problem Type Condition ICD-9 Code Onset Dates Condition Status Problem Mixed hyperlipidemia E78.2 Active Problem Dyspnea, unspecified R06.00 Active Problem Hypertensive heart disease without heart failure I11.9 Active Problem Coronary angioplasty status Z98.61 Active Problem CAD without angina I25.10 Active Problem Atherosclerotic heart disease of [place] coronary artery without angina pectoris I25.10 Active Problem Angina pectoris, unspecified I20.9 Active Problem Bruit R09.89 Active Problem PCI status Z98.61 Active Problem Obesity, unspecified E66.9 Active Assessment Hypertensive heart disease without heart failure I11.9 Active Assessment Bruit R09.89 Active Assessment Obesity, unspecified E66.9 Active Assessment PCI status Z98.61 Active Assessment Coronary angioplasty status Z98.61 Active Assessment Atherosclerotic heart disease of [place] coronary artery without angina pectoris I25.10 Active Assessment Mixed hyperlipidemia E78.2 Active Problem Hypercholesterolemia 272.0 Active Assessment CAD without angina I25.10 Active Problem Palpitations R00.2 Active Medications Medication Code System Code Instructions Start Date End Date Status Dosage Crestor [facility] [address]-75 10 MG Orally Once a day Active 1 tablet Ramipril [facility] [address]-40 10 MG Orally Once a day Active 1 capsule Famotidine [facility] [address]-66 20 MG Orally twice a day (bid) Active 1 tablet Multivitamin Gummies Adult [facility] 180[address]-85416 Orally Active Unknown Metoprolol Succinate ER [facility] [address]-01 50 mg Orally Once a day Active 1 tablet Hydrochlorothiazide [facility] [address]-07 25 MG Orally Once a day Active 1 tablet Meclizine HCl [facility] [address]-83 25 MG Orally Once a day Jun 26, 2014 Active 1 tablet as needed Nexium [facility] [address]-02 40 MG Orally Once a day Active 1 capsule Citalopram Hydrobromide [facility] [address]-08 20 MG Orally Once a day Active 1 tablet Aspirin [facility] [address]-98 81 MG Orally Once a day Active 1 tablet Brilinta [facility] [address]-33 90 MG Orally Twice a day Active 1 tablet Social History Social History Element Qualifiers Date Reported Tobacco Use: . Are you a: never smoker Apr 18, 2016 Do you drink alcohol? . Status: Yes, Type: Rarely Apr 18, 2016 Vital Signs Date/Time: Apr 18, 2016 Weight 275 lbs Cardiac Monitoring Heart Rate 84 /min Blood Pressure Diastolic 70 mm Hg Blood Pressure Systolic 138 mm Hg Summary Purpose eClinicalWorks Submission
--- OUTSIDE RECORDS SUMMARY | 2019-03-31 06:33 | XMS REPORT ---
Author Author Shane Goldsmith Organization eClinicalWorks Address Unknown Phone Unavailable Care Team Providers Care Seamark Advanced Operator Maintainer Name Role Phone Shane Goldsmith CP Unavailable Allergies No Known Allergies Problems Problem Type Condition Code Onset Dates Condition Status Problem Palpitations R00.2 Active Problem Hypertensive heart disease without heart failure I11.9 Active Problem Mixed hyperlipidemia E78.2 Active Problem Atherosclerotic heart disease of [place] coronary artery without angina pectoris I25.10 Active [...] Medications Results No Known Results Summary Purpose [employer] Submission
--- OUTSIDE RECORDS SUMMARY | 2019-03-31 06:33 | XMS REPORT ---
Author Author Shane Goldsmith [facility] [place] eClinicalWorks Address Unknown Phone Unavailable Care Team Providers Care Electrophonic Engineer Name Role Phone Shane Goldsmith CP Unavailable Allergies, Adverse Reactions, Alerts Substance Reaction Event Type N.K.D.A. Info Not Available Non Drug Allergy Problems Problem Type Condition Code Onset Dates Condition Status Problem Palpitations R00.2 Active Problem Hypertensive heart disease without heart failure I11.9 Active Problem Mixed hyperlipidemia E78.2 Active Problem Atherosclerotic heart disease of [place] coronary artery without angina pectoris I25.10 Active [...] Instructions Start Date End Date Status Dosage Aspirin [facility] 80953684370 81 MG Orally Once a day Active [address] [facility] 69174143956 10 MG Orally Once a day Active 1 tablet Meclizine HCl [facility] 53157088969 25 MG Orally Once a day Jun 26, 2014 Active 1 tablet as needed Prilosec [facility] 49435385895 40 MG Orally Once a day February 03, 2017 Active [address] [facility] 37731657891 40 MG Orally twice a day (bid) September 17, 2016 Active 1 tablet Metoprolol Succinate ER ND 66093035613 50 mg Orally Once a day Active [address] [facility] 43483553780 20 MG Orally twice a day (bid) Active [address] [facility] 24202380787 40 MG Orally Once a day Active 1 capsule Benadryl Allergy [facility] 94580267847 25 MG Orally every 8 hrs Active 1 tablet as needed Omeprazole [facility] 53463868474 40 Active TAKE ONE CAPSULE BY MOUTH ONCE DAILY Clopidogrel Bisulfate [facility] 68568316570 75 mg Orally Once a day May 08, 2017 Active [address] [facility] 20454419647 1 GM Orally Twice a day Active 1 tablet at bedtime on an empty stomach before meals Potassium [facility] 19569545971 75 MG Orally Once a day Active 1 tablet Citalopram Hydrobromide [facility] 13027102443 20 MG Orally Once a day Active [address] [facility] 88309608566 25 MG Orally Once a day Active [address] [facility] [address]-32 2.5 MG Orally Once a day Active 1 capsule Multivitamin Gummies Adult [facility] 94832513010 Orally Active not defined Vital Signs Date/Time: Mar 29, 2018 BMI 45.76 Index Weight 275 lbs Height 5ft 5in in Cardiac Monitoring Heart Rate 84 /min Blood Pressure Diastolic 69 mm Hg Blood Pressure Systolic 135 mm Hg Results No Known Results Summary Purpose eClinicalWorks Submission
[2019-03-31 09:50] VITALS: BP 114/66
== END | disposition home or self-care (01) ==
LOC: OR 06:25
PROVIDERS: ATTEND Internal Medicine Gastroenterology
DX: K29.70 Gastritis, unspecified, without bleeding (principal); K22.2 Esophageal obstruction; K44.9 Diaphragmatic hernia without obstruction or gangrene; K21.9 Gastro-esophageal reflux disease without esophagitis; Z71.3 Dietary counseling and surveillance; I25.10 Atherosclerotic heart disease of native coronary artery without angina pectoris; I10 Essential (primary) hypertension; G47.33 Obstructive sleep apnea (adult) (pediatric); E66.01 Morbid (severe) obesity due to excess calories; M19.90 Unspecified osteoarthritis, unspecified site; F32.9 Major depressive disorder, single episode, unspecified; Z88.6 Allergy status to analgesic agent; Z01.810 Encounter for preprocedural cardiovascular examination; Z01.812 Encounter for preprocedural laboratory examination; Z79.02 Long term (current) use of antithrombotics/antiplatelets; Z68.42 Body mass index [BMI] 45.0-49.9, adult; Z95.5 Presence of coronary angioplasty implant and graft
CPT/HCPCS: 36415; 43239; 43249; 85025; 93005; J2250; J2704; J3010; 43233